=== PATIENT | female | born 1990 | race African-American/Black ===

== ENCOUNTER 2017-02-17 19:43 | Emergency (ER) | payer OTHER ==
[~2017-02-17] VITALS: Ht 152.4 cm; Wt 44.0 kg
[2017-02-17 19:55] LABS: URINE BILIRUBIN NEGATIVE (Negative); URINE BLOOD NEGATIVE (Negative); URINE COLOR YELLOW; URINE GLUCOSE-RANDOM* NEGATIVE (Negative); URINE KETONES 1+ (Negative); URINE NITRITE NEGATIVE (Negative); URINE PROTEIN (DIPSTICK) TRACE (Negative); URINE SPECIFIC GRAVITY >= 1.030 (1.003-1.035)
[2017-02-17 20:44] LABS: HEMATOCRIT 34.6 % (37.0-47.0); HEMOGLOBIN 11.8 gm/dL (12.0-15.0); MCH 30.6 pg (26.0-34.0); MCHC 34.2 g/dL (28.0-37.0); MCV 89.5 fL (80.0-100.0); RBC 3.87 mil/uL (4.20-5.00); WBC 8.8 thou/uL (4.0-11.0)
[2017-02-17 20:51] LABS: CALCIUM 8.9 mg/dL (8.5-10.1); CREATININE 0.7 mg/dL (0.6-1.3); POTASSIUM 3.4 mmol/L (3.5-5.1)
[2017-02-17] MEDS ORDERED: MOBIC15 MG PO (21:19)
[2017-02-17] MEDS ORDERED: PHENERGAN 25 MG25 M1 PO (21:24)
[2017-02-17 21:41] VITALS: BP 108/73
== END 2017-02-17 21:42 | disposition home or self-care (01) ==
LOC: ER 19:43
PROVIDERS: Physician Assistant
DX: N83.201 Unspecified ovarian cyst, right side (principal)